=== PATIENT | female | born 1960 | race Caucasian/White ===

== ENCOUNTER → 2017-09-20 | Outpatient (CLI) | payer OTHER ==
--- NOTE | 2017-09-20 13:33 | CT ---
EXAMINATION TYPE: CT brain wo con DATE OF EXAM: 09/20/2017 COMPARISON: NONE HISTORY: Right sided Sharp pains for 2 weeks. right sided parietal lump today CT DLP: 1186 mGycm Automated exposure control for dose reduction was used. Helical acquisition through the brain. FINDINGS: No hemorrhage or hydrocephalus. No mass effect. Brain density is normal. Inflammatory change present in the left maxillary sinus and ethmoid air cells on the left. No discrete mass evident to account fo r patient's palpable abnormality. IMPRESSION: SINUS DISEASE.
== END | disposition home or self-care (01) ==
LOC: RADCTMAIN 12:41
PROVIDERS: ATTEND Internal Medicine
DX: R51 Headache (principal)
CPT/HCPCS: 70450

== ENCOUNTER → 2018-04-23 | Outpatient (CLI) | payer OTHER ==
--- NOTE | 2018-04-25 10:00 | MM ---
Reason for exam: screening (asymptomatic). Last mammogram was performed 2 years and 2 months ago. History: Patient history of endometrial cancer. Benign US right guided mammotome of the right breast, July 16, 2005. Benign excisional biopsy of the left breast, 2002. Took hormonal contraceptives for 2 years. Physical Findings: A clinical breast exam by your physician is recommended on an annual basis and results should be correlated with mammographic findings. MG Screening Mammo w CAD Bilateral CC and MLO view(s) were taken. Prior study comparison: March 06, 2016, bilateral MG screening mammo w CAD. October 15, 2011, bilateral digital screening mammo w/CAD. There are scattered fibroglandular densities. Previous mammotome biopsy in the right breast. No significant changes when compared with prior studies. ASSESSMENT: Negative, BI-RAD 1 RECOMMENDATION: Routine screening mammogram of both breasts in 1 year.
== END | disposition home or self-care (01) ==
LOC: RADMAMWWP 15:18
PROVIDERS: ATTEND Internal Medicine
DX: Z12.31 Encounter for screening mammogram for malignant neoplasm of breast (principal)
CPT/HCPCS: 77067

== ENCOUNTER → 2023-05-15 | Outpatient (CLI) | payer OTHER ==
[2023-05-15 14:25] VITALS: BP 112/76; PULSE 72; RESP 15; TEMP 98.4
--- NOTE | 2023-05-15 14:34 | P.PAINPG ---
PQRS Measure Charge Sheet Comment: HISTORY OF PRESENT ILLNESS: A 62 yr old female as a referral from Dr Beckford presents today w severe and chronic LBP x 20 yrs secondary to DDD, spondylosis and facet arthropathy without myelopathy for evaluation. Pt states pain level is provoked at 10/10 in intensity, constant, localized in the mid to lower lumbar spine, sharp/ stabbing in character w shooting pain towards the BL feet. Pain is provoked by sitting/standing/laying for periods of 30 min or more. Pain is alleviated by PT years ago, medications (Wellborn 10/325mg #120), use of a walker for ambulatory assistance, repositioning and rest. Oswestry axial pain score at . PMH: OA, HTN, COPD, DM II, Hyperlipidemia, MDD, Schizophrenia PSH: Hysterectomy, L Shoulder Surgery, LE Balloon SH: Daily tobacco use, No ETOH abuse, No illicit drug use FH: Fa- CA All: See list Meds: See list REVIEW OF ORGAN SYSTEMS: CONSTITUTIONAL: No fevers or chills. No recent weight loss. NEUROLOGICAL: + numbness and tingling along the distal extremities. No seizure disorders or headaches. MUSCULOSKELETAL: + pain PSYCHIATRIC: Denies current depression or suicidal thoughts. Physical Examinations : Constitutional : Cooperative , not in acute distress . Neurologic : Cranial nerve II to XII intact. No focal neurological deficits. Psychiatric : alert & oriented x 3. Matching mood & appropriate affect. Judgment & insight intact. Musculoskeletal : Cervical Spine Motor strength in the deltoid and biceps: Normal right side. Normal Left side Motor strength biceps and the wrist extensors: Normal right side . Normal left side Motor strength in the triceps muscle: Normal right side. Normal left side Deep tendon reflexes: Normal at the biceps. Normal at Brachioradialis. Normal at triceps Vertebral body tenderness to deep palpation over Cervical facet loading test: positive bilaterally Spurling test: positive bilaterally Neck distraction test: positive bilaterally Anastacio sign: positive bilaterally Lumbar spine Motor strength lower extremities ,thigh and legs 5/5 Right side , 5/5 Left side Deep tendon reflexes : Normal Knee Jerk. Normal Ankle Jerk Vertebral body tenderness over Conroy Test positive Lumbar facet Loading Test: positive Right / positive Left Range of motion of the lumbar spine Flexion 30 degrees, extension 10 degrees Straight Leg Raise test: Left/ Right positive at degree Elissa test: positive right / positive left. Severe tenderness over the Sacroiliac joint on the Right / Left sides Gaenslen test: positive bilaterally Seated flexion test: positive bilaterally. Sacral spine : Severe tenderness over the Sacroiliac joint: right side / left side Range of motion: Flexion of the lumbar spine <60 degrees Range of motion: Extension of the lumbar spine <20 degrees Gaenslen's Test positive Win's Test positive Elissa test: positive right side / left side Thigh Thrust Test Sacral Thrust Test Imaging: Lumbar x ray from 01/24/23 reviewed Assessment/ Plan : Lumbar DDD Recommendation of medication management and MRI lumbar spine Dx M51.36 Wellborn 10/325mg #120 w 1 RF. Use, side effects, adverse reactions and safe storage discussed. Opiate/ narcotic agreement signed 05/15/23. Pt acknowledged understanding. PT x 6 wks M51.36 All questions answered. I have spent greater than 30 minutes on patient care today. Dr Pina was available by phone for the evaluation of this patient. The time was used to review the medical records including relevant urine studies and Prescription history (MAPs), review of the available imaging, evaluation and examination of the patient, coordination of care with the medical staff and if applicable referring physicians, as well as creation of the medical record PQRS Narrative: Smoking Status Current every day smoker Home Medications: Ambulatory Orders Albuterol Inhaler [Ventolin Inhaler] 2 puff INHALATION QID PRN 03/14/15 Metoprolol Succinate (ER) [Toprol XL] 25 mg PO DAILY 03/14/15 Montelukast Sodium [Singulair] 10 mg PO HS 03/14/15 QUEtiapine FUMARATE [SEROquel] 300 mg PO HS 03/14/15 Ranitidine HCl [Zantac] 150 mg PO BID 03/14/15 Venlafaxine HCl [Effexor Xr] 150 mg PO DAILY 03/14/15 lisinopriL [Zestril] 2.5 mg PO HS 03/14/15 traZODone HCL [Desyrel] 100 mg PO HS 03/14/15 Albuterol Nebulized [Ventolin Nebulized] 1 applicate INHALATION DIRECTED PRN 12/20/15 HYDROcodone/APAP 7.5-325MG [Wellborn 7.5-325] 1 tab PO TID 12/20/15 Insulin Glargine [Lantus] 10 unit SQ HS 12/20/15 Loratadine [Claritin] 10 mg PO DAILY 12/20/15 Meloxicam [Mobic] 7.5 mg PO BID 12/20/15 Simvastatin [Zocor] 40 mg PO HS 12/20/15 gemfibroziL [Lopid] 600 mg PO AC-BID 12/20/15 rOPINIRole HCL [Requip] 0.25 mg PO HS 12/20/15 Cyclobenzaprine [Flexeril] 10 mg PO HS 01/26/16 Insulin Glulisine [Apidra Solostar] 5 unit SQ TID-W/MEALS 01/26/16 HYDROcodone/APAP 10-325MG [Wellborn 10-325] 1 tab PO Q6HR PRN 30 Days #120 tab 05/15/23 HYDROcodone/APAP 10-325MG [Wellborn 10-325] 1 tab PO Q6HR PRN 30 Days #120 tab 05/15/23 Controlled Substance Measures - Controlled Substance Measures Is patient prescribed a controlled substance at discharge?: Yes When asked, does pt state using other controlled substances?: No If prescribed controlled substance>3 days was MAPS reviewed?: Yes If Rx opioid, was Start Talking consent form obtained?: Yes Was information provided regarding opioid addiction?: Yes
== END ==
LOC: PNWHC3 11:30
PROVIDERS: ATTEND Specialist
DX: M50.20 Other cervical disc displacement, unspecified cervical region (principal); M51.36 Other intervertebral disc degeneration, lumbar region; M51.34 Other intervertebral disc degeneration, thoracic region; M47.816 Spondylosis without myelopathy or radiculopathy, lumbar region; F17.200 Nicotine dependence, unspecified, uncomplicated; Z88.6 Allergy status to analgesic agent; Z88.5 Allergy status to narcotic agent; Z79.02 Long term (current) use of antithrombotics/antiplatelets
CPT/HCPCS: 99211

== ENCOUNTER → 2023-06-19 | Outpatient (CLI) | payer OTHER ==
[2023-06-19 13:17] VITALS: BP 113/76; PULSE 114; RESP 16; TEMP 97.9
--- NOTE | 2023-06-19 15:05 | P.PAINPG ---
PQRS Measure Charge Sheet Comment: HISTORY OF PRESENT ILLNESS: A 62 yr old wheelchair bound female presents today w severe and chronic LBP x 20 yrs secondary to DDD, spondylosis and facet arthropathy without myelopathy for evaluation. Pt states pain level is provoked at 10/10 in intensity, constant, localized in the mid to lower lumbar spine, predominantly axial, sharp/ stabbing in character w occasional shooting pain towards the BL feet. Pain is provoked by sitting/standing/laying for periods of 30 min or more. Pain is alleviated by PT years ago, medications, use of a walker for ambulatory assistance, repositioning and rest. Oswestry axial pain score at 23. Pt has not started PT as originally recommended at her last visit. Interventional procedures include Medications include [place] 10/325mg #120 REVIEW OF ORGAN SYSTEMS: CONSTITUTIONAL: No fevers or chills. No recent weight loss. NEUROLOGICAL: + numbness and tingling along the distal extremities. No seizure disorders or headaches. MUSCULOSKELETAL: + pain PSYCHIATRIC: Denies current depression or suicidal thoughts. Physical Examinations : Constitutional : Cooperative , not in acute distress . Neurologic : Cranial nerve II to XII intact. No focal neurological deficits. Psychiatric : alert & oriented x 3. Matching mood & appropriate affect. Judgment & insight intact. Musculoskeletal : Cervical Spine Motor strength in the deltoid and biceps: Normal right side. Normal Left side Motor strength biceps and the wrist extensors: Normal right side . Normal left side Motor strength in the triceps muscle: Normal right side. Normal left side Deep tendon reflexes: Normal at the biceps. Normal at Brachioradialis. Normal at triceps Vertebral body tenderness to deep palpation over Cervical facet loading test: positive bilaterally Spurling test: positive bilaterally Neck distraction test: positive bilaterally Anastacio sign: positive bilaterally Lumbar spine Motor strength lower extremities ,thigh and legs 5/5 Right side , 5/5 Left side Deep tendon reflexes : Normal Knee Jerk. Normal Ankle Jerk Vertebral body tenderness over Conroy Test positive Lumbar facet Loading Test: positive Right / positive Left Range of motion of the lumbar spine Flexion 30 degrees, extension 10 degrees Straight Leg Raise test: Left/ Right positive at degree Elissa test: positive right / positive left. Severe tenderness over the Sacroiliac joint on the Right / Left sides Gaenslen test: positive bilaterally Seated flexion test: positive bilaterally. Sacral spine : Severe tenderness over the Sacroiliac joint: right side / left side Range of motion: Flexion of the lumbar spine <60 degrees Range of motion: Extension of the lumbar spine <20 degrees Gaenslen's Test positive Win's Test positive Elissa test: positive right side / left side Thigh Thrust Test Sacral Thrust Test Imaging: Lumbar x ray from 01/24/23 reviewed Assessment/ Plan : Lumbar DDD Recommendation of starting PT, as directed at last visit. Protocol for discontinuation/ continuation of medications surrounding procedure discussed. Medication management. Calion 10/325mg #120 NR. Use, side effects, adverse reactions and safe storage discussed. Opiate/ narcotic agreement signed 05/15/23. Pt acknowledged understanding. PT x 6 wks M51.36 All questions answered. I have spent greater than 30 minutes on patient care today. Dr Pina was available by phone for the evaluation of this patient. The time was used to review the medical records including relevant urine studies and Prescription history (MAPs), review of the available imaging, evaluation and examination of the patient, coordination of care with the medical staff and if applicable referring physicians, as well as creation of the medical record PQRS Narrative: Smoking Status Current every day smoker Home Medications: Ambulatory Orders Albuterol Inhaler [Ventolin Inhaler] 2 puff INHALATION QID PRN 03/14/15 Metoprolol Succinate (ER) [Toprol XL] 25 mg PO DAILY 03/14/15 Montelukast Sodium [Singulair] 10 mg PO HS 03/14/15 QUEtiapine FUMARATE [SEROquel] 300 mg PO HS 03/14/15 Ranitidine HCl [Zantac] 150 mg PO BID 03/14/15 Venlafaxine HCl [Effexor Xr] 150 mg PO DAILY 03/14/15 lisinopriL [Zestril] 2.5 mg PO HS 03/14/15 traZODone HCL [Desyrel] 100 mg PO HS 03/14/15 Albuterol Nebulized [Ventolin Nebulized] 1 applicate INHALATION DIRECTED PRN 12/20/15 Insulin Glargine [Lantus] 10 unit SQ HS 12/20/15 Loratadine [Claritin] 10 mg PO DAILY 12/20/15 Meloxicam [Mobic] 7.5 mg PO BID 12/20/15 Simvastatin [Zocor] 40 mg PO HS 12/20/15 gemfibroziL [Lopid] 600 mg PO AC-BID 12/20/15 rOPINIRole HCL [Requip] 0.25 mg PO HS 12/20/15 Cyclobenzaprine [Flexeril] 10 mg PO HS 01/26/16 Insulin Glulisine [Apidra Solostar] 5 unit SQ TID-W/MEALS 01/26/16 HYDROcodone/APAP 10-325MG [Calion 10-325] 1 tab PO Q6HR PRN 30 Days #120 tab 06/19/23 Controlled Substance Measures - Controlled Substance Measures Is patient prescribed a controlled substance at discharge?: Yes When asked, does pt state using other controlled substances?: No If prescribed controlled substance>3 days was MAPS reviewed?: Yes
[2023-06-21 10:00] LABS: Serum Amphetamine Negative; Serum Barbiturates Negative; Serum Benzodiazepine Negative; Serum Cocaine Negative; Serum Methadone Negative; Serum Opiates Negative; Serum Phencyclidine Negative; Serum Propoxyphene Negative; Serum THC (Cannabis) Negative
== END ==
LOC: PNWHC3 12:28
PROVIDERS: ATTEND Specialist
DX: M47.816 Spondylosis without myelopathy or radiculopathy, lumbar region (principal); F17.200 Nicotine dependence, unspecified, uncomplicated; M51.36 Other intervertebral disc degeneration, lumbar region; Z88.6 Allergy status to analgesic agent; Z88.5 Allergy status to narcotic agent; Z79.899 Other long term (current) drug therapy; Z79.4 Long term (current) use of insulin; Z02.83 Encounter for blood-alcohol and blood-drug test
CPT/HCPCS: 80307; G0463; 99211; 99212

== ENCOUNTER → 2023-12-05 | Outpatient (CLI) | payer OTHER ==
[2023-12-05 14:26] VITALS: BP 92/50; PULSE 76; RESP 15; TEMP 98.1
--- NOTE | 2023-12-05 14:35 | P.PAINPG ---
PQRS Measure Charge Sheet Comment: HISTORY OF PRESENT ILLNESS: A 63 yr old wheelchair bound female as a referral from Dr Rubalcava presents today w severe and chronic LBP x 20 yrs secondary to DDD, spondylosis and facet arthropathy without myelopathy for evaluation. Pt states pain level is provoked at 9 /10 in intensity, constant, localized in the mid to lower lumbar spine, predominantly axial, stabbing in character w occasional shooting pain towards the BL feet. Pain is provoked by sitting/standing/laying for periods of 30 min or more. Pain is alleviated by visiting home PT x 6 wks which she is currently in, medications, use of a walker for ambulatory assistance, repositioning and rest. Oswestry axial pain score at 23. Pt has scheduled toe amputation in 3wks. Interventional procedures include Medications include [place] 10/325mg #120, Neurontin 100mg #180 REVIEW OF ORGAN SYSTEMS: CONSTITUTIONAL: No fevers or chills. No recent weight loss. NEUROLOGICAL: + numbness and tingling along the distal extremities. No seizure disorders or headaches. MUSCULOSKELETAL: + pain PSYCHIATRIC: Denies current depression or suicidal thoughts. Physical Examinations : Constitutional : Cooperative , not in acute distress . Neurologic : Cranial nerve II to XII intact. No focal neurological deficits. Psychiatric : alert & oriented x 3. Matching mood & appropriate affect. Judgment & insight intact. Musculoskeletal : Cervical Spine Motor strength in the deltoid and biceps: Normal right side. Normal Left side Motor strength biceps and the wrist extensors: Normal right side . Normal left side Motor strength in the triceps muscle: Normal right side. Normal left side Deep tendon reflexes: Normal at the biceps. Normal at Brachioradialis. Normal at triceps Vertebral body tenderness to deep palpation over Cervical facet loading test: positive bilaterally Spurling test: positive bilaterally Neck distraction test: positive bilaterally Anastacio sign: positive bilaterally Lumbar spine Motor strength lower extremities ,thigh and legs 5/5 Right side , 5/5 Left side Deep tendon reflexes : Normal Knee Jerk. Normal Ankle Jerk Vertebral body tenderness over Conroy Test positive Lumbar facet Loading Test: positive Right / positive Left Range of motion of the lumbar spine Flexion 30 degrees, extension 10 degrees Straight Leg Raise test: Left/ Right positive at degree Elissa test: positive right / positive left. Severe tenderness over the Sacroiliac joint on the Right / Left sides Gaenslen test: positive bilaterally Seated flexion test: positive bilaterally. Sacral spine : Severe tenderness over the Sacroiliac joint: right side / left side Range of motion: Flexion of the lumbar spine <60 degrees Range of motion: Extension of the lumbar spine <20 degrees Gaenslen's Test positive Win's Test positive Elissa test: positive right side / left side Thigh Thrust Test Sacral Thrust Test Imaging: Lumbar x ray from 01/24/23 reviewed Assessment/ Plan : Lumbar DDD Recommendation of obtaining medical records. HILDA form signed. RTC in 1-2 wks. All questions answered. I have spent greater than 30 minutes on patient care today. Dr Pina was available by phone for the evaluation of this patient. The time was used to review the medical records including relevant urine studies and Prescription history (MAPs), review of the available imaging, evaluation and examination of the patient, coordination of care with the medical staff and if applicable referring physicians, as well as creation of the medical record PQRS Narrative: Smoking Status Current every day smoker Hx Alcohol Use (MH) Yes: RARE Home Medications: Ambulatory Orders Albuterol Inhaler [Ventolin Inhaler] 2 puff INHALATION QID PRN 03/14/15 Metoprolol Succinate (ER) [Toprol XL] 25 mg PO DAILY 03/14/15 Montelukast Sodium [Singulair] 10 mg PO HS 03/14/15 QUEtiapine FUMARATE [SEROquel] 300 mg PO HS 03/14/15 Ranitidine HCl [Zantac] 150 mg PO BID 03/14/15 Venlafaxine HCl [Effexor Xr] 150 mg PO DAILY 03/14/15 lisinopriL [Zestril] 2.5 mg PO HS 03/14/15 traZODone HCL [Desyrel] 100 mg PO HS 03/14/15 Albuterol Nebulized [Ventolin Nebulized] 1 applicate INHALATION DIRECTED PRN 12/20/15 Insulin Glargine [Lantus] 10 unit SQ HS 12/20/15 Loratadine [Claritin] 10 mg PO DAILY 12/20/15 Meloxicam [Mobic] 7.5 mg PO BID 12/20/15 Simvastatin [Zocor] 40 mg PO HS 12/20/15 gemfibroziL [Lopid] 600 mg PO AC-BID 12/20/15 rOPINIRole HCL [Requip] 0.25 mg PO HS 12/20/15 Cyclobenzaprine [Flexeril] 10 mg PO HS 01/26/16 Insulin Glulisine [Apidra Solostar] 5 unit SQ TID-W/MEALS 01/26/16 HYDROcodone/APAP 10-325MG [[place] 10-325] 1 tab PO Q6HR PRN 30 Days #120 tab 07/18/23 Controlled Substance Measures - Controlled Substance Measures Is patient prescribed a controlled substance at discharge?: No
--- NOTE | 2023-12-05 17:33 | XR ---
EXAMINATION TYPE: XR lumbar spine 3V DATE OF EXAM: 12/05/2023 Comparison: None Clinical History: 63-year-old female M51.36 INTERVERTEBRAL DISC DEG Findings: Slight dextroconvexed curvature lumbar spine. 5 lumbar type vertebral bodies. Facet arthropathy mid t o lower lumbar spine. Mild degenerative disc disease throughout the lumbar spine. Trace grade 1 anter olisthesis L3-L4. Atherosclerotic calcification throughout the abdominal aorta. Impression: Mild degenerative disc disease throughout. Hypertrophic facet arthropathy mid to lower lumbar spine. Degenerative trace grade 1 anterolisthesis L3-L4. No vertebral compression collapse.
== END ==
LOC: PNWHC3 12:46
PROVIDERS: ATTEND Specialist
DX: M54.50 Low back pain, unspecified (principal); M51.36 Other intervertebral disc degeneration, lumbar region; M54.2 Cervicalgia; M43.16 Spondylolisthesis, lumbar region; M47.816 Spondylosis without myelopathy or radiculopathy, lumbar region; G89.29 Other chronic pain; F17.200 Nicotine dependence, unspecified, uncomplicated; Z88.6 Allergy status to analgesic agent; Z88.5 Allergy status to narcotic agent
CPT/HCPCS: 72100; G0463; 99211

== ENCOUNTER → 2023-12-31 | Outpatient (CLI) | payer OTHER ==
--- NOTE | 2023-12-31 21:17 | MR ---
EXAMINATION TYPE: MR lumbar spine wo con DATE OF EXAM: 12/31/2023 COMPARISON: None HISTORY: Low back pain x10 years, TECHNIQUE: Multiplanar, multisequence images of the lumbar spine were acquired without IV contrast. FINDINGS: The lumbar vertebral segments are normal in height and alignment there is no fracture or subluxation. The disc spaces are well preserved in height. There is mild to moderate circumferential disc bulge at the L4-5 and L5-S1 discs consistent with mild degenerative disc disease. There is no lumbar disc herniation. The conus medullaris cauda equina appear normal and there is no spinal stenosis. There is moderate facet arthropathy at the L3-4, L4-5 and L5-S1 levels. Secondary to disc bulge, there is mild neural foraminal stenosis at the L4-5 level bilaterally. The paraspinal soft tissues are unremarkable. Visualized sacrum and SI joints are normal. IMPRESSION: 1. Mild degenerative disc disease and moderate facet arthropathy at the L4-5 and L5-S1 levels. 2. No lumbar disc herniation or spinal stenosis. 3. Mild neural foraminal stenosis secondary to disc bulge at the L4-5 level bilaterally.
== END | disposition home or self-care (01) ==
LOC: RADMRIMAIN 15:56
PROVIDERS: ATTEND Specialist
DX: M51.37 Other intervertebral disc degeneration, lumbosacral region (principal); M47.817 Spondylosis without myelopathy or radiculopathy, lumbosacral region; M99.73 Connective tissue and disc stenosis of intervertebral foramina of lumbar region
CPT/HCPCS: 72148